=== PATIENT | male | born 1960 | race Caucasian/White ===

== ENCOUNTER 2017-07-27 07:36 | Emergency (ER) | payer OTHER ==
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
[2017-07-27] MEDS ORDERED: Diphtheria,Pertussis(Acell),Tetanus Vaccine 0.5 ML Syringe IM ONE (08:36)
[2017-07-27 10:45] VITALS: BP 129/75
== END 2017-07-27 09:20 ==
LOC: CC.ED 07:36
DX: S68.621A Partial traumatic transphalangeal amputation of left index finger, initial encounter (principal); I10 Essential (primary) hypertension; E78.00 Pure hypercholesterolemia, unspecified; Z79.82 Long term (current) use of aspirin; Z79.899 Other long term (current) drug therapy; Z23 Encounter for immunization; W31.89XA Contact with other specified machinery, initial encounter; Y93.89 Activity, other specified; Y99.0 Civilian activity done for income or pay
CPT/HCPCS: 73140-F1; 90471; 90715; 99284

== ENCOUNTER 2023-03-02 16:50 | Emergency (ER) | payer OTHER, BC ==
[2023-03-02 17:01] VITALS: BP 136/85; PULSE 85
== END 2023-03-02 17:11 | disposition home or self-care (01) ==
LOC: CC.ED 16:50
DX: S93.692A Other sprain of left foot, initial encounter (principal); E78.00 Pure hypercholesterolemia, unspecified; I10 Essential (primary) hypertension; Z79.82 Long term (current) use of aspirin; Z79.899 Other long term (current) drug therapy; W18.30XA Fall on same level, unspecified, initial encounter
CPT/HCPCS: 73630-LT; 99283

== ENCOUNTER 2024-07-28 06:16 | Day surgery (SDC) | payer BC, OTHER ==
[2024-07-28] MEDS: Lactated Ringers 1,000 ML IV SCH (06:36)
[2024-07-28] MEDS ORDERED: Ketamine 200 MG/20 ML MDV ONE (06:55)
[2024-07-28] MEDS ORDERED: fentaNYL 50 MCG/ML SDV ONE (06:55)
[2024-07-28] MEDS ORDERED: Propofol 200 MG/20 ML SDV ONE (06:55)
[2024-07-28 08:44] VITALS: BP 124/84; PULSE 60
== END 2024-07-28 11:19 | disposition home or self-care (01) ==
LOC: CC.SDS 06:16
PROVIDERS: ATTEND Family Medicine
DX: Z12.11 Encounter for screening for malignant neoplasm of colon (principal); D12.3 Benign neoplasm of transverse colon; Z80.0 Family history of malignant neoplasm of digestive organs; Z86.0100 Personal history of colon polyps, unspecified; I10 Essential (primary) hypertension; E11.9 Type 2 diabetes mellitus without complications; E78.5 Hyperlipidemia, unspecified; Z79.82 Long term (current) use of aspirin; Z79.899 Other long term (current) drug therapy
CPT/HCPCS: 00812; J2704; J3010; J3490; J7120